=== PATIENT | female | born 1960 | race Caucasian/White ===

== ENCOUNTER → 2017-11-01 | Outpatient (CLI) | payer BC ==
[~2017-11-01] MED LIST: ABILIFY 10MG TA10 MG PO; ALDACTONE50 MG PO; ALTOPREV10 MG PO; AMOXICILLIN 8751 TAB PO; ASPERCREME1 EACH TP; ASTEPRO205.5 MCG/ NS; BENEFIBER PO; BYSTOLIC20 MG PO; CLEOCIN HC150 MG/CAP PO; DESYREL 100MG100 MG PO; DESYREL DIVIDO300 MG PO; FLEXERIL 1010 MG/TAB PO; FLOMAX 0.40.4 MG/CAP PO; GLUCOPHAGE500 MG/TAB PO; HAIRSKINNAILS PO; IMITREX ST6 MG/0.5 M SQ; IMITREX100 MG PO; INDERAL80 MG PO; K-DUR 10 MEQ T10 MEQ PO; LANTUS100 U/ML SC; LANTUS100 U/ML SQ; LASIX 40MG TABL40 MG PO; LIDO2%GEL TOP; LIDODERM 5% PATC1 EA TP; LOTENSIN40 MG PO; LOZOL2.5 MG PO; METHERGINE0.2 MG/TAB; NASONEX SPRAY; NASONEX SPRAY17 GM NS; NEXIUM 40MG40 MG PO; NORCO 325 MG-7.1 TAB PO; NORVASC 5MG5 MG/TAB PO; NOVOLOG 100U100 U/M1 SQ; NUVIGIL150 MG PO; OMNICEF 300MG300 MG PO; PHENERGAN 25 TA25 MG PO; PHENERGAN50 MG/SUPP RC; PRISTIQ100 MG PO; PROTONIX 40MG T40 MG PO; QUESTRAN4 GM/9 GM PO; RELPAX 40MG TAB40 MG PO; RELPAX40 MG PO; RETIN A MICRO TP; STADOL NASA25 MG/BOT NS; TENORMIN100 MG PO; TOVIAZ8 MG PO; TUMS500 MG PO; VENTOLIN0.09 MG IH; VICTOZA6 MG/ML SC; VITAMIND3 5000 PO; WELLBUTRIN SR150 M1 PO; XANAX 1MG1 MG PO; ZANAFLEX 4MG TAB4 MG PO; ZOFRAN 4MG T4 MG/TAB PO; ZOFRAN8 MG PO
== END ==
LOC: COL.LAB 13:49
DX: E87.6 Hypokalemia (principal)

== ENCOUNTER 2018-05-22 14:10 | Emergency (ER) | payer BC ==
[~2018-05-22] VITALS: Ht 165.1 cm; Wt 97.7 kg
[2018-05-22 14:12] VITALS: BP 129/84; PULSE 89; TEMP 97.5
[2018-05-22] MEDS ORDERED: CLEOCIN HCL300 MG PO (14:48)
[2018-05-22] MEDS ORDERED: FLOMAX 0.40.4 MG/CAP PO (15:14)
[2018-05-22] MEDS ORDERED: KLOR-CON M1515 MEQ PO (15:15)
[2018-05-22] MEDS ORDERED: ABILIFY 15MG TA15 MG PO (15:17)
== END 2018-05-22 15:34 | disposition home or self-care (01) ==
LOC: COL.ER 14:10
DX: L25.9 Unspecified contact dermatitis, unspecified cause (principal); I10 Essential (primary) hypertension; E78.5 Hyperlipidemia, unspecified; Z87.891 Personal history of nicotine dependence
CPT/HCPCS: J1885

== ENCOUNTER 2020-12-06 21:53 | Emergency (ER) | payer BC ==
[~2020-12-06] VITALS: Ht 165.1 cm; Wt 98.6 kg
[~2020-12-06 21:53] MED LIST changes: +ABILIFY 15MG TA15 MG PO; +CLEOCIN HCL300 MG PO; +KLOR-CON M1515 MEQ PO
[2020-12-06 22:35] VITALS: TEMP 98.7
[2020-12-07 03:42] LABS: BASO # 0.1 (0.0-0.2); BASO % 0.5 % (0.0-2.0); EOS # 0.2 (0.0-0.7); EOS % 1.6 % (0-4.0); GRAN # 5.6 (1.4-6.5); GRAN % 55.9 % (42.2-75.2); HEMATOCRIT 39.3 % (37.0-47.0); HEMOGLOBIN 13.5 g/dl (12.5-16.0); LYMPH # 3.4 (1.2-3.4); LYMPH % 34.6 % (20.0-51.0); MEAN CELL VOLUME 91 fl (80.0-100.0); MEAN CORPUSCULAR HEMOGLOBIN 31 pg (27.0-31.0); MEAN CORPUSCULAR HGB CONC 34 g/dl (33.0-37.0); MEAN PLATELET VOLUME 9.8 fl (7.4-10.4); MONO # 0.7 (0.1-0.6); PLATELET COUNT 235 K/mm3 (130-400); RED BLOOD COUNT 4.33 M/mm3 (4.10-5.30); REDCELL DISTRIBUTION WIDTH-CV 14.2 % (11.5-14.5)
[2020-12-07 03:54] LABS: ALBUMIN 3.8 gm/dL (3.5-5.0); BILIRUBIN,TOTAL 0.4 mg/dL (0.0-1.0); CALCIUM 8.5 mg/dL (8.4-10.2); CREATININE, serum 0.75 (0.52-1.25); POTASSIUM 3.6 mmol/L (3.4-5.0); TOTAL PROTEIN 6.4 gm/dL (6.4-8.2)
[2020-12-07 04:14] LABS: COLLECTION METHOD CLEAN CATCH
[2020-12-07 04:19] LABS: PH 6 (5-8); SQUAMOUS EPITHELIAL 0-2 /hpf; URINE APPEARANCE Clear; URINE BACTERIA None Seen /hpf; URINE BILIRUBIN Negative (NEGATIVE); URINE BLOOD Negative (NEGATIVE); URINE COLOR Yellow; URINE GLUCOSE Negative (NEGATIVE); URINE KETONE Negative (NEGATIVE); URINE LEUKOCYTE ESTERASE Negative (NEGATIVE); URINE NITRATE Negative (NEGATIVE); URINE PROTEIN(semi-quant) Negative (NEGATIVE); URINE RBC 0-2 /hpf; URINE UROBILINOGEN Negative (NEGATIVE)
[2020-12-07 05:10] VITALS: BP 117/82; PULSE 84
== END 2020-12-07 05:10 | disposition home or self-care (01) ==
LOC: COL.ER 21:53
PROVIDERS: Emergency Medicine
DX: L02.211 Cutaneous abscess of abdominal wall (principal); L30.9 Dermatitis, unspecified; Z98.84 Bariatric surgery status; E66.9 Obesity, unspecified; E11.9 Type 2 diabetes mellitus without complications; I10 Essential (primary) hypertension; Z87.442 Personal history of urinary calculi; Z68.36 Body mass index [BMI] 36.0-36.9, adult; Z79.899 Other long term (current) drug therapy
CPT/HCPCS: J1170; J2405